=== PATIENT | male | born 1990 | race Caucasian/White ===

== ENCOUNTER 2019-07-14 10:05 | Emergency (ER) | payer OTHER ==
[~2019-07-14] VITALS: Ht 188 cm; Wt 108.9 kg
--- NOTE | 2019-07-14 10:19 | NUR ---
Dr No at the bedside for MSE.
[2019-07-14 10:48] LABS: *BILIRUBIN,URIN NEGATIVE (NEGATIVE); *CLARITY,URINE CLEAR (CLEAR); *COLOR,URINE YELLOW (YELLOW); *KETONES,URINE NEGATIVE (NEGATIVE); *UROBILINOGEN,URINE 0.2 E.U./dl (NORMAL); LEUKOCYTE ESTERASE ,URINE NEGATIVE (NEGATIVE); NITRITE, URINE NEGATIVE (NEGATIVE); PH,URINE 7.5 (5.0-8.0); UGLUCOSE NEGATIVE (NEGATIVE)
[2019-07-14 10:50] LABS: *BLOOD, URINE TRACE (NEGATIVE)
[2019-07-14 10:57] LABS: WBC,URINE 0-3 /HPF (0-3)
[2019-07-14 10:58] LABS: BACTERIA,URINE NONE SEEN /HPF (NONE SEEN); SQUAMOUS EPITHELIAL CELL,UR FEW /HPF (NONE SEEN)
[2019-07-14 11:55] VITALS: BP 133/67
== END 2019-07-14 11:59 | disposition home or self-care (01) ==
LOC: ER 10:05
DX: N50.89 Other specified disorders of the male genital organs (principal); N50.812 Left testicular pain; F41.9 Anxiety disorder, unspecified
CPT/HCPCS: 76870; A4663

== ENCOUNTER 2025-08-22 20:18 | Emergency (ER) | payer OTHER ==
[~2025-08-22] VITALS: Ht 188 cm; Wt 117.9 kg
[2025-08-22 20:19] VITALS: BP 167/95
[2025-08-22] MEDS ORDERED: DOXY100C5 PO (20:45)
[2025-08-22 20:50] VITALS: BP 162/91; TEMP 99.2; O2SAT 97
== END 2025-08-22 20:50 | disposition home or self-care (01) ==
LOC: ER 20:25
DX: J06.9 Acute upper respiratory infection, unspecified (principal); Z88.7 Allergy status to serum and vaccine
CPT/HCPCS: A4606; A4663